=== PATIENT | female | born 1985 | race Caucasian/White ===

== ENCOUNTER 2017-02-08 16:26 | Emergency (ER) | payer SELFPAY ==
--- NOTE | 2017-02-08 19:01 | DIAGNOSTIC IMAGING REPORT ---
PROCEDURE: US COMPLETE PELVIC W/TRANSVAG INDICATION: PAIN TECHNIQUE: Transabdominal and endovaginal johnson scale and color Doppler sonographic images of the female pelvis were obtained. COMPARISON: None. FINDINGS: TRANSABDOMINAL SCANS: Anteverted uterus measures 7 x 6.3 x 3.8 cm. Normal kidneys. TRANSVAGINAL SCANS: Myometrium is unremarkable. IUD in satisfactory position with the tip in the fundal portion of the endometrium. Endometrium measures 4.5 mm. Left ovary measures 3.2 by 21 by 2.6 cm and right ovary 4.2 x 2.8 x 2.9 cm. There is a 2.5 cm simple right ovarian cyst. There is vascular flow to the ovaries. Trace free fluid in the cul-de-sac. No adnexal mass. IMPRESSION: 1. IUD in satisfactory position 2. 2.5 cm simple right ovarian cyst with trace free fluid in the pelvis.
--- NOTE | 2017-02-08 19:08 | ED NURSING NOTES ---
Clinical Report - Nurses [facility] [address] [place] [address] 02/08/2017 16:27 Patient: DANICA CALDWELL TRIAGE Triage time 17:Feb 08 2017. Acuity: LEVEL 3. Chief Complaint: ABDOMINAL PAIN. Alert. No acute distress. JASON COMA SCORE: [place] Coma Scale: 15- eyes open spontaneously (4); best verbal response- oriented x 4 (5); best motor response- obeys commands (6). --17:23 Clara Chin R.N. 17:16 02/08/17. BP: 111/66. HR: 77. RR: 16. O2 saturation: 100%. Temp: 97.9 F. Pain level now: 01/30. --17:23 Clara Chin R.N. Weight: 62.1 kg stated. Height/Length: 62 inches Per Patient. BMI: 25.1. --17:15 Clara Chin R.N. Medications None. --17:17 Clara Chin R.N. Allergies None. --17:17 Clara Chin R.N. History Arrived by private vehicle. Historian: patient. Accompanied by friend. Onset. (several months). She has had nausea and vomiting. ( fatigue, also complains of right and left side of body going numb at times.). 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 PAST MEDICAL HX: Immunizations: up-to-date. Last normal menstrual period- about 2 months ago. Uses an intrauterine device. Denies current . SOCIAL HX: Current every day heavy tobacco smoker (cigarette)- less than 1 pack per day. Occasional alcohol use. History of weekly drug use: marijuana. No recent travel. No infectious disease exposure. No known contact with a sick individual. SELF HARM ASSESSMENT: A self harm assessment was performed. The patient answered "no" to the question "Do you have thoughts of harming or killing yourself?" and "Have you recently had thoughts about harming or killing others?". FALL RISK ASSESSMENT: Fall risk assessment completed. No fall risk identified. NUTRITIONAL RISK ASSESSMENT: The nutritional risk assessment revealed no deficiencies. FUNCTIONAL ASSESSMENT: Functional assessment: no impairments noted. LEARNING NEEDS ASSESSMENT: The learning needs assessment revealed no barriers. ABUSE ASSESSMENT: Abuse assessment: The patient was asked "Do you feel safe in your home?". SKIN INTEGRITY ASSESSMENT: Skin integrity risk assessment completed. No skin integrity risk identified. --17:23 Clara Chin R.N. PROBLEMS: URI. Pelvic Pain. Diarrhea. Vaginitis. UTI - Urinary Tract Infection. Vaginal Discharge. . Asthma. Care. Immunizations. LNMP - Last Normal Menstrual Period. OB History. --17:18 Clara Chin R.N. ADDITIONAL SURGERIES: Appendectomy. . --17:18 Clara Chin R.N. Trigger thumb. --17:18 Clara Chin R.N. Interventions ID band on patient. To room. --17:23 Clara Chin R.N. PHYSICAL ASSESSMENT Ambulatory to room. GENERAL / NEURO / PSYCH: Alert. Oriented X 4. Appears in pain. RESPIRATORY: Respirations not labored. CVS: Capillary refill less than 2 seconds. GI / : Abdomen soft. Abdominal tenderness in the suprapubic area. Bowel sounds within normal limits. SKIN: Skin is warm and dry. --17:25 Clara Chin R.N. NURSING PROGRESS NOTES Patient gowned. Head of bed elevated. Patient identifiers checked. Call light placed in reach. Bed placed in lowest position. Brakes of bed on. --17:25 Clara Chin R.N. PELVIC EXAM: Pelvic exam performed by PA. Assisted by one nurse. Preparation: pelvic tray and culture medium; patient placed in lithotomy position. Procedure: speculum and bimanual exam. Specimens collected and sent to lab: GC, chlamydia and wet prep. No vaginal discharge noted. No vaginal bleeding noted. No rectal exam performed. Status post-procedure: she was stable and no complications were noted. Total time of assist / procedure: 15 minutes. --18:10 Ines Kemp R.N. 17:24 02/08/2017 Site #1 started via IV in the right antecubital space with an 20g angiocath; one attempt. Blood drawn: rainbow set. Labeled in the presence of the patient and sent to the lab. Saline lock flushed with 10 mL saline. --19:24 Clara Chin R.N. 19:02/08/2017 Macrobid PO Capsules 100 mg given. Allergies verified and confirmed 5 rights. --19: Clara Chin R.N. 19:02/08/2017 Toradol IVP 30 mg given over 2 minute(s) via site #1. Allergies verified and confirmed 5 rights. IV patency established. IV site checked: no pain, redness, or swelling. IV flushed thoroughly pre- and post-medication administration. IVP given by RN. --: Clara Chin R.N. DISPOSITION / DISCHARGE 19:32 02/08/2017 Site #1 removed upon discharge. Bandage applied. --:32 Clara Chin R.N. Departure time: :Feb 08 2017. Condition at departure: improved. No learning barriers present. Discharge instructions provided and reviewed with the patient. Reviewed medication(s) side effects, precautions, dosing and course information. Prescription(s) given to the patient. Reviewed referral to a customer program specialist for followup. Patient verbalized understanding. Written instructions provided in Icelandic. The patient was discharged home. She left the Emergency Department ambulatory and via private vehicle. Patient driving. --19:33 Clara Chin R.N. 19:32 02/08/17. BP: 118/73. HR: 74. RR: 16. O2 saturation: 98%. Pain level now: 12/30. --19:33 Clara Chin R.N. Locked/Released at 02/08/2017 19:48 by Clara Chin R.N.
--- NOTE | 2017-02-08 19:08 | ED ORDER SUMMARY ---
..... Patient: DANICA CALDWELL OrderSheet [facility] VisitID: [id number] [place] [address] 31y, F Registration Date/Time: 02/08/2017 ORDER SHEET Weight: 62.1 kg (stated) Allergies: None GENERAL ORDERS: US Pelvic Complete w Transvag Urgent (17:44 02/08/2017 EKoroleva P.A.-C) (Ack 18:12 LNations ER Tech1) (19:24 KKnebel R.N.) CBC w Diff Urgent (17:44 02/08/2017 EKoroleva P.A.-C) (17:54 KWilliams R.N.) CMP Urgent (17:44 02/08/2017 EKoroleva P.A.-C) (17:54 KWilliams R.N.) UA-Culture if indicated Urgent (17:44 02/08/2017 EKoroleva P.A.-C) (Ack 18:12 LNations ER Tech1) (19:24 KKnebel R.N.) Lipase Urgent (17:44 02/08/2017 EKoroleva P.A.-C) (17:54 KWilliams R.N.) Urine Urgent (17:44 02/08/2017 EKoroleva P.A.-C) (17:54 KWilliams R.N.) Pelvic Exam Setup (17:44 02/08/2017 EKoroleva P.A.-C) (18:07 KWilliams R.N.) Wet Prep (Cervix) (c) Urgent (18:19 02/08/2017 EKoroleva P.A.-C) (Ack 18:22 LNations ER Tech1) (19:24 KKnebel R.N.) GC/Chlamydia, Urine (Urine, Clean Catch) (c) Urgent (18:20 02/08/2017 EKoroleva P.A.-C) (Ack 18:22 LNations ER Tech1) (19:24 KKnebel R.N.) Vitals (18:59 02/08/2017 EKoroleva P.A.-C) (Ack 19:23 IJurca ER Tech1) (19:24 Malorie R.N.) MEDICATION ORDERS: Macrobid PO 100 mg (NOW) (18:38 02/08/2017 EKlincoln P.A.-C) (19:21 Malorie R.N.) IV FLUIDS: Toradol IV 30 mg (NOW) (18:38 02/08/2017 Nico P.A.-C) (19:24 Malorie R.N.) ORDER SHEET NOTES: [Electronically signed by Clara Chin R.N. (19:48 02/08/2017)] [Electronically signed by Phoebe Clark-Kayli (20:05 02/08/2017)] [Electronically locked/signed by Clara Chin R.N. (19:48 02/08/2017)]
--- NOTE | 2017-02-08 19:08 | ED ORDER SUMMARY ---
..... Patient: DANICA CALDWELL OrderSheet [facility] VisitID: [id number] [place] [address] 31y, F Registration Date/Time: 02/08/2017 ORDER SHEET Weight: 62.1 kg (stated) Allergies: None GENERAL ORDERS: US Pelvic Complete w Transvag Urgent (17:44 02/08/2017 EKoroleva P.A.-C) (Ack 18:12 LNations ER Tech1) (19:24 KKnebel R.N.) CBC w Diff Urgent (17:44 02/08/2017 EKoroleva P.A.-C) (17:54 KWilliams R.N.) CMP Urgent (17:44 02/08/2017 EKoroleva P.A.-C) (17:54 KWilliams R.N.) UA-Culture if indicated Urgent (17:44 02/08/2017 EKoroleva P.A.-C) (Ack 18:12 LNations ER Tech1) (19:24 KKnebel R.N.) Lipase Urgent (17:44 02/08/2017 EKoroleva P.A.-C) (17:54 KWilliams R.N.) Urine Urgent (17:44 02/08/2017 EKoroleva P.A.-C) (17:54 KWilliams R.N.) Pelvic Exam Setup (17:44 02/08/2017 EKoroleva P.A.-C) (18:07 KWilliams R.N.) Wet Prep (Cervix) (c) Urgent (18:19 02/08/2017 EKoroleva P.A.-C) (Ack 18:22 LNations ER Tech1) (19:24 KKnebel R.N.) GC/Chlamydia, Urine (Urine, Clean Catch) (c) Urgent (18:20 02/08/2017 EKoroleva P.A.-C) (Ack 18:22 LNations ER Tech1) (19:24 KKnebel R.N.) Vitals (18:59 02/08/2017 EKoroleva P.A.-C) (Ack 19:23 IJurca ER Tech1) (19:24 Malorie R.N.) MEDICATION ORDERS: Macrobid PO 100 mg (NOW) (18:38 02/08/2017 EKlincoln P.A.-C) (19:21 Malorie R.N.) IV FLUIDS: Toradol IV 30 mg (NOW) (18:38 02/08/2017 Nico P.A.-C) (19:24 Malorie R.N.) ORDER SHEET NOTES: [Electronically signed by Clara Chin R.N. (19:48 02/08/2017)] [Electronically signed by Phoebe Calrk-Kayli (20:05 02/08/2017)] [Electronically locked/signed by Clara Chin R.N. (19:48 02/08/2017)]
--- NOTE | 2017-02-08 19:08 | ED NURSING NOTES ---
Clinical Report - Nurses [facility] [address] [place] [address] 02/08/2017 16:27 Patient: DANICA CALDWELL TRIAGE Triage time 17:Feb 08 2017. Acuity: LEVEL 3. Chief Complaint: ABDOMINAL PAIN. Alert. No acute distress. JASON COMA SCORE: [place] Coma Scale: 15- eyes open spontaneously (4); best verbal response- oriented x 4 (5); best motor response- obeys commands (6). --17:23 Clara Chin R.N. 17:16 02/08/17. BP: 111/66. HR: 77. RR: 16. O2 saturation: 100%. Temp: 97.9 F. Pain level now: 01/30. --17:23 Clara Chin R.N. Weight: 62.1 kg stated. Height/Length: 62 inches Per Patient. BMI: 25.1. --17:15 Clara Chin R.N. Medications None. --17:17 Clara Chin R.N. Allergies None. --17:17 Clara Chin R.N. History Arrived by private vehicle. Historian: patient. Accompanied by friend. Onset. (several months). She has had nausea and vomiting. ( fatigue, also complains of right and left side of body going numb at times.). 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 PAST MEDICAL HX: Immunizations: up-to-date. Last normal menstrual period- about 2 months ago. Uses an intrauterine device. Denies current . SOCIAL HX: Current every day heavy tobacco smoker (cigarette)- less than 1 pack per day. Occasional alcohol use. History of weekly drug use: marijuana. No recent travel. No infectious disease exposure. No known contact with a sick individual. SELF HARM ASSESSMENT: A self harm assessment was performed. The patient answered "no" to the question "Do you have thoughts of harming or killing yourself?" and "Have you recently had thoughts about harming or killing others?". FALL RISK ASSESSMENT: Fall risk assessment completed. No fall risk identified. NUTRITIONAL RISK ASSESSMENT: The nutritional risk assessment revealed no deficiencies. FUNCTIONAL ASSESSMENT: Functional assessment: no impairments noted. LEARNING NEEDS ASSESSMENT: The learning needs assessment revealed no barriers. ABUSE ASSESSMENT: Abuse assessment: The patient was asked "Do you feel safe in your home?". SKIN INTEGRITY ASSESSMENT: Skin integrity risk assessment completed. No skin integrity risk identified. --17:23 Clara Chin R.N. PROBLEMS: URI. Pelvic Pain. Diarrhea. Vaginitis. UTI - Urinary Tract Infection. Vaginal Discharge. . Asthma. Care. Immunizations. LNMP - Last Normal Menstrual Period. OB History. --17:18 Clara Chin R.N. ADDITIONAL SURGERIES: Appendectomy. . --17:18 Clara Chin R.N. Trigger thumb. --17:18 Clara Chin R.N. Interventions ID band on patient. To room. --17:23 Clara Chin R.N. PHYSICAL ASSESSMENT Ambulatory to room. GENERAL / NEURO / PSYCH: Alert. Oriented X 4. Appears in pain. RESPIRATORY: Respirations not labored. CVS: Capillary refill less than 2 seconds. GI / : Abdomen soft. Abdominal tenderness in the suprapubic area. Bowel sounds within normal limits. SKIN: Skin is warm and dry. --17:25 Clara Chin R.N. NURSING PROGRESS NOTES Patient gowned. Head of bed elevated. Patient identifiers checked. Call light placed in reach. Bed placed in lowest position. Brakes of bed on. --17:25 Clara Chin R.N. PELVIC EXAM: Pelvic exam performed by PA. Assisted by one nurse. Preparation: pelvic tray and culture medium; patient placed in lithotomy position. Procedure: speculum and bimanual exam. Specimens collected and sent to lab: GC, chlamydia and wet prep. No vaginal discharge noted. No vaginal bleeding noted. No rectal exam performed. Status post-procedure: she was stable and no complications were noted. Total time of assist / procedure: 15 minutes. --18:10 Ines Kemp R.N. 17:24 02/08/2017 Site #1 started via IV in the right antecubital space with an 20g angiocath; one attempt. Blood drawn: rainbow set. Labeled in the presence of the patient and sent to the lab. Saline lock flushed with 10 mL saline. --19:24 Clara Chin R.N. 19:02/08/2017 Macrobid PO Capsules 100 mg given. Allergies verified and confirmed 5 rights. --19: Clara Chin R.N. 19:02/08/2017 Toradol IVP 30 mg given over 2 minute(s) via site #1. Allergies verified and confirmed 5 rights. IV patency established. IV site checked: no pain, redness, or swelling. IV flushed thoroughly pre- and post-medication administration. IVP given by RN. --: Clara Chin R.N. DISPOSITION / DISCHARGE 19:32 02/08/2017 Site #1 removed upon discharge. Bandage applied. --:32 Clara Chin R.N. Departure time: :Feb 08 2017. Condition at departure: improved. No learning barriers present. Discharge instructions provided and reviewed with the patient. Reviewed medication(s) side effects, precautions, dosing and course information. Prescription(s) given to the patient. Reviewed referral to a cotton bag sewer for followup. Patient verbalized understanding. Written instructions provided in Panamanian. The patient was discharged home. She left the Emergency Department ambulatory and via private vehicle. Patient driving. --19:33 Clara Chin R.N. 19:32 02/08/17. BP: 118/73. HR: 74. RR: 16. O2 saturation: 98%. Pain level now: 12/30. --19:33 Clara Chin R.N. Locked/Released at 02/08/2017 19:48 by Clara Chin R.N.
--- NOTE | 2017-02-08 19:08 | ED CLINICAL REPORT ---
Clinical Report - Physicians/Mid Levels [facility] [address] [place] [address] 02/08/2017 16:27 Patient: DANICA CALDWELL Time Seen: 17:52 Gregory 2016. Arrived- By private vehicle. Historian- patient. HISTORY OF PRESENT ILLNESS Chief Complaint: ABDOMINAL PAIN. It is described as "pain" and it is described as located in the pelvic area and in the left pelvis. This started few months. (patient reports left lower quadrant abdominal pain ongoing over the last few months, off and on, worse over the last 2 days, patient has had an IV in place in the last 2 years, has had spotting usually every month, however has not had any of the last 2 months. Patient has taken a few test at home which have been negative. Patient denies urgency or frequency or dysuria. patient reports paresthesias to the right upper and lower extremity over the last few months, lasting a few mins, they coincide usually with her migraines, which she reports having daily. At times appears seizures lasted a few minutes, up to 10 or 15.). REVIEW OF SYSTEMS No constipation, black stools, difficulty with urination, pain with urination or fever. No chest pain. All systems otherwise negative, except as recorded above. SOCIAL HISTORY Smoker- current status unknown. Alcohol use. History of drug use: marijuana. ADDITIONAL NOTES The nursing notes have been reviewed. PHYSICAL EXAM Vital Signs: 02/08/2017 17:16 BP: 111/66. HR: 77. RR: 16. O2 saturation: 100%. Temp: 97.9 F. Pain level now: 6/10. Appearance: No acute distress. Eyes: Eyes normal inspection. ENT: Ears normal. Nose normal. Neck: Normal inspection. Neck supple. CVS: Normal heart rate and rhythm. Heart sounds normal. Pulses normal. Respiratory: No respiratory distress. Breath sounds normal. Abdomen: Nontender. Back: Normal inspection. : Normal external exam. Speculum exam normal. A scant amount of white vaginal discharge present. No vaginal bleeding. Bimanual exam normal. Mild uterine tenderness; left adnexal tenderness. Not mild cervical motion tenderness. (janessa with Lokesh RN). Skin: Skin warm. Neuro: Oriented X 3. No motor deficit. LABS, X-RAYS, AND EKG Laboratory Tests: UA-Culture if indicated: (MIMI: 02/08/2017 17:30) ( [facility] 02/08/2017 18:06) Final results Test Result Flag Units (Reference) URINE COLOR YELLOW URINE APPEARANCE SL CLOUDY URINE GLUCOSE NEGATIVE (NEGATIVE) URINE BILIRUBIN NEGATIVE (NEGATIVE) URINE KETONE NEGATIVE (NEGATIVE) URINE SPECIFIC GRAVITY 1.020 (1.010-1.030) URINE PH 6.0 (5.0-8.0) URINE PROTEIN NEGATIVE (NEGATIVE) URINE UROBILINOGEN 0.2 EU/dL (0.2-1.0) URINE NITRITE NEGATIVE (NEGATIVE) URINE BLOOD NEGATIVE (NEGATIVE) URINE LEUK ESTERASE TRACE (NEGATIVE) URINE RBC 0-1 rbc/hpf (0-1) URINE WBC 1-3 wbc/hpf (0-1) URINE EPITHELIAL CELLS 5-10 EPI/hpf (0-5) URINE BACTERIA MODERATE (2+ TO 3+) (NONE SEEN) URINE COMMENT CULTURE INDICATED URINE CULTURES ARE SET-UP BASED ON THE FOLLOWING CRITERIA:POSITIVE NITRITEPOSITIVE LEUKOCYTE ESTERASEGREATER THAN 10 WHITE BLOOD CELLSMODERATE (2+) OR GREATER BACTERIA Urine: (MIMI: 02/08/2017 17:30) ( [facility] 02/08/2017 17:59) Final results Test Result Flag Units (Reference) URINE NEGATIVE CBC w Diff: (MIMI: 02/08/2017 17:30) ( [facility] 02/08/2017 17:52) Final results Test Result Flag Units (Reference) WHITE BLOOD COUNT 7.7 K/uL (4.5-11.5) RED BLOOD COUNT 4.08 M/uL (4.00-5.20) HEMOGLOBIN 13.2 gm/dL (12.0-16.0) HEMATOCRIT 39.3 % (36.0-46.0) MEAN CELL VOLUME 96 fL (80-100) MEAN CORPUSCULAR HGB 32 pg (26-34) MEAN CORPUSCULAR HGB CONC 34 g/dL (31-37) RED CELL DISTRIBUTION WIDTH 13.6 % (11.6-14.8) PLATELET COUNT 186 K/uL (150-400) LYMPH % 32.3 % (25-40) MONO % 5.9 % (3-14) GRANULOCYTE % 61.8 (53-90) CMP: (MIMI: 02/08/2017 17:30) ( [facility] 02/08/2017 18:06) Final results Test Result Flag Units (Reference) GLUCOSE 79 mg/dL (70-110) BUN 20 H mg/dL (7-18) CREATININE 0.7 mg/dL (0.6-1.3) Estimated GFR >60 mL/min Estimated GFR- >60 mL/min Note: Persistent reduction over 3 months in eGFR<60 mL/min/1.73 m2 defines CKD. Patients with eGFR values>=60 mL/min/1.73 m2 may also have CKD if evidence ofpersistent proteinuria. Additional information may be foundat www.kidney.org. SODIUM 142 mmol/L (136-145) POTASSIUM 4.3 mmol/L (3.5-5.1) CHLORIDE 106 mmol/L (98-107) CARBON DIOXIDE 28 mmol/L (21-32) CALCIUM 8.9 mg/dL (8.5-10.1) TOTAL PROTEIN 7.3 g/dL (6.4-8.2) ALBUMIN 3.8 g/dL (3.3-5.0) BILIRUBIN, TOTAL 0.2 mg/dL (0.0-1.0) ALKALINE PHOSPHATASE 83 U/L (46-116) AST (SGOT) 14 L U/L (15-37) ALT (SGPT) 28 U/L (12-78) LIPASE 349 U/L (73-393) Wet Prep: (MIMI: 02/08/2017 18:04) ( [facility] 02/08/2017 18:45) Final results SPECIMEN DESCRIPTION: C Test Result Flag Units (Reference) WET MOUNT CLUE CELLS:: FEW * EPITHELIAL CELLS: MODERATE -- SOURCE?: CERVIX WHITE BLOOD CELLS: FEW TRICHOMONAS:: NONE -- YEAST:: NONE . Note - Tests: (US PELVIS: IMPRESSION: 1. IUD in satisfactory position 2. 2.5 cm simple right ovarian cyst with trace free fluid in the pelvis. Electronically Final signed by:Jordan Robin MD 02/08/2017 7:00:42 PM). PROGRESS AND PROCEDURES Course of Care: patient in the emergency department with pelvic pain ongoing for a few months off and on, with an IUD that is present and largely good position. Patient with negative lab workup, signs of early cystitis, otherwise free fluid, which may represent recent ruptured cyst, as patient's pain worsened last night. Patient has no signs of acute surgical abdomen. 02/08/2017 19:32 BP: 118/73. HR: 74. RR: 16. O2 saturation: 98%. Pain level now: 5/10. Patient is stable. Physical exam findings are improved. Symptoms better. Patient/family counseled. Differential Diagnosis: I considered gastritis, gastroenteritis, acute appendicitis, diverticulitis, small bowel obstruction, biliary colic, hepatitis, splenic injury, intraabdominal abscess, urinary tract infection and ovarian cyst as a possible cause of abdominal pain in this patient. This is a partial list of diagnoses considered. Disposition: Discharged. Condition: good. CLINICAL IMPRESSION Pelvic pain. Paresthesia Acute cystitis. INSTRUCTIONS Drink plenty of fluids. (your IUD appears in good proper location). Warnings: Further evaluation is necessary. Prescription Medications: Macrobid 100 mg: Take 1 capsule orally every 12 hours for 7 days. No refills. Substitution is permissible. OTC Medications: Take acetaminophen (Tylenol, Datril, etc.) and ibuprofen (Advil, Nuprin, etc.) according to label instructions. Available over the counter. Follow-up with: Christos George MD, Obstetrics/Gynecology, , [facility], [address] [place] [address] Follow up. Call for the next available appointment. (Electronically signed by Phoebe Clark P.A.-C 02/08/2017 20:05)
--- NOTE | 2017-02-08 19:08 | ED CLINICAL REPORT ---
Clinical Report - Physicians/Mid Levels [facility] [address] [place] [address] 02/08/2017 16:27 Patient: DANICA CALDWELL Time Seen: 17:52 Gregory 2016. Arrived- By private vehicle. Historian- patient. HISTORY OF PRESENT ILLNESS Chief Complaint: ABDOMINAL PAIN. It is described as "pain" and it is described as located in the pelvic area and in the left pelvis. This started few months. (patient reports left lower quadrant abdominal pain ongoing over the last few months, off and on, worse over the last 2 days, patient has had an IV in place in the last 2 years, has had spotting usually every month, however has not had any of the last 2 months. Patient has taken a few test at home which have been negative. Patient denies urgency or frequency or dysuria. patient reports paresthesias to the right upper and lower extremity over the last few months, lasting a few mins, they coincide usually with her migraines, which she reports having daily. At times appears seizures lasted a few minutes, up to 10 or 15.). REVIEW OF SYSTEMS No constipation, black stools, difficulty with urination, pain with urination or fever. No chest pain. All systems otherwise negative, except as recorded above. SOCIAL HISTORY Smoker- current status unknown. Alcohol use. History of drug use: marijuana. ADDITIONAL NOTES The nursing notes have been reviewed. PHYSICAL EXAM Vital Signs: 02/08/2017 17:16 BP: 111/66. HR: 77. RR: 16. O2 saturation: 100%. Temp: 97.9 F. Pain level now: 6/10. Appearance: No acute distress. Eyes: Eyes normal inspection. ENT: Ears normal. Nose normal. Neck: Normal inspection. Neck supple. CVS: Normal heart rate and rhythm. Heart sounds normal. Pulses normal. Respiratory: No respiratory distress. Breath sounds normal. Abdomen: Nontender. Back: Normal inspection. : Normal external exam. Speculum exam normal. A scant amount of white vaginal discharge present. No vaginal bleeding. Bimanual exam normal. Mild uterine tenderness; left adnexal tenderness. Not mild cervical motion tenderness. (janessa with Lokesh RN). Skin: Skin warm. Neuro: Oriented X 3. No motor deficit. LABS, X-RAYS, AND EKG Laboratory Tests: UA-Culture if indicated: (MIMI: 02/08/2017 17:30) ( [facility] 02/08/2017 18:06) Final results Test Result Flag Units (Reference) URINE COLOR YELLOW URINE APPEARANCE SL CLOUDY URINE GLUCOSE NEGATIVE (NEGATIVE) URINE BILIRUBIN NEGATIVE (NEGATIVE) URINE KETONE NEGATIVE (NEGATIVE) URINE SPECIFIC GRAVITY 1.020 (1.010-1.030) URINE PH 6.0 (5.0-8.0) URINE PROTEIN NEGATIVE (NEGATIVE) URINE UROBILINOGEN 0.2 EU/dL (0.2-1.0) URINE NITRITE NEGATIVE (NEGATIVE) URINE BLOOD NEGATIVE (NEGATIVE) URINE LEUK ESTERASE TRACE (NEGATIVE) URINE RBC 0-1 rbc/hpf (0-1) URINE WBC 1-3 wbc/hpf (0-1) URINE EPITHELIAL CELLS 5-10 EPI/hpf (0-5) URINE BACTERIA MODERATE (2+ TO 3+) (NONE SEEN) URINE COMMENT CULTURE INDICATED URINE CULTURES ARE SET-UP BASED ON THE FOLLOWING CRITERIA:POSITIVE NITRITEPOSITIVE LEUKOCYTE ESTERASEGREATER THAN 10 WHITE BLOOD CELLSMODERATE (2+) OR GREATER BACTERIA Urine: (MIMI: 02/08/2017 17:30) ( [facility] 02/08/2017 17:59) Final results Test Result Flag Units (Reference) URINE NEGATIVE CBC w Diff: (MIMI: 02/08/2017 17:30) ( [facility] 02/08/2017 17:52) Final results Test Result Flag Units (Reference) WHITE BLOOD COUNT 7.7 K/uL (4.5-11.5) RED BLOOD COUNT 4.08 M/uL (4.00-5.20) HEMOGLOBIN 13.2 gm/dL (12.0-16.0) HEMATOCRIT 39.3 % (36.0-46.0) MEAN CELL VOLUME 96 fL (80-100) MEAN CORPUSCULAR HGB 32 pg (26-34) MEAN CORPUSCULAR HGB CONC 34 g/dL (31-37) RED CELL DISTRIBUTION WIDTH 13.6 % (11.6-14.8) PLATELET COUNT 186 K/uL (150-400) LYMPH % 32.3 % (25-40) MONO % 5.9 % (3-14) GRANULOCYTE % 61.8 (53-90) CMP: (MIMI: 02/08/2017 17:30) ( [facility] 02/08/2017 18:06) Final results Test Result Flag Units (Reference) GLUCOSE 79 mg/dL (70-110) BUN 20 H mg/dL (7-18) CREATININE 0.7 mg/dL (0.6-1.3) Estimated GFR >60 mL/min Estimated GFR- >60 mL/min Note: Persistent reduction over 3 months in eGFR<60 mL/min/1.73 m2 defines CKD. Patients with eGFR values>=60 mL/min/1.73 m2 may also have CKD if evidence ofpersistent proteinuria. Additional information may be foundat www.[email or web address].org. SODIUM 142 mmol/L (136-145) POTASSIUM 4.3 mmol/L (3.5-5.1) CHLORIDE 106 mmol/L (98-107) CARBON DIOXIDE 28 mmol/L (21-32) CALCIUM 8.9 mg/dL (8.5-10.1) TOTAL PROTEIN 7.3 g/dL (6.4-8.2) ALBUMIN 3.8 g/dL (3.3-5.0) BILIRUBIN, TOTAL 0.2 mg/dL (0.0-1.0) ALKALINE PHOSPHATASE 83 U/L (46-116) AST (SGOT) 14 L U/L (15-37) ALT (SGPT) 28 U/L (12-78) LIPASE 349 U/L (73-393) Wet Prep: (MIMI: 02/08/2017 18:04) ( [facility] 02/08/2017 18:45) Final results SPECIMEN DESCRIPTION: C Test Result Flag Units (Reference) WET MOUNT CLUE CELLS:: FEW * EPITHELIAL CELLS: MODERATE -- SOURCE?: CERVIX WHITE BLOOD CELLS: FEW TRICHOMONAS:: NONE -- YEAST:: NONE . Note - Tests: (US PELVIS: IMPRESSION: 1. IUD in satisfactory position 2. 2.5 cm simple right ovarian cyst with trace free fluid in the pelvis. Electronically Final signed by:Jordan Robin MD 02/08/2017 7:00:42 PM). PROGRESS AND PROCEDURES Course of Care: patient in the emergency department with pelvic pain ongoing for a few months off and on, with an IUD that is present and largely good position. Patient with negative lab workup, signs of early cystitis, otherwise free fluid, which may represent recent ruptured cyst, as patient's pain worsened last night. Patient has no signs of acute surgical abdomen. 02/08/2017 19:32 BP: 118/73. HR: 74. RR: 16. O2 saturation: 98%. Pain level now: 5/10. Patient is stable. Physical exam findings are improved. Symptoms better. Patient/family counseled. Differential Diagnosis: I considered gastritis, gastroenteritis, acute appendicitis, diverticulitis, small bowel obstruction, biliary colic, hepatitis, splenic injury, intraabdominal abscess, urinary tract infection and ovarian cyst as a possible cause of abdominal pain in this patient. This is a partial list of diagnoses considered. Disposition: Discharged. Condition: good. CLINICAL IMPRESSION Pelvic pain. Paresthesia Acute cystitis. INSTRUCTIONS Drink plenty of fluids. (your IUD appears in good proper location). Warnings: Further evaluation is necessary. Prescription Medications: Macrobid 100 mg: Take 1 capsule orally every 12 hours for 7 days. No refills. Substitution is permissible. OTC Medications: Take acetaminophen (Tylenol, Datril, etc.) and ibuprofen (Advil, Nuprin, etc.) according to label instructions. Available over the counter. Follow-up with: Christos George MD, Obstetrics/Gynecology, , [facility], [address] [place] [address] Follow up. Call for the next available appointment. (Electronically signed by Phoebe Clark P.A.-C 02/08/2017 20:05)
--- NOTE | 2017-02-08 20:05 | ED DISCHARGE INSTRUCTIONS ---
Patient: DANICA CALDWELL General Instructions [facility] VisitID: [id number] [place] [address] 31y, F Registration Date/Time: 02/08/2017 Pelvic pain. Paresthesia Acute cystitis. INSTRUCTIONS Drink plenty of fluids. (your IUD appears in good proper location). Warnings: Further evaluation is necessary. Prescription Medications: Macrobid 100 mg: Take 1 capsule orally every 12 hours for 7 days. No refills. Substitution is permissible. OTC Medications: Take acetaminophen (Tylenol, Datril, etc.) and ibuprofen (Advil, Nuprin, etc.) according to label instructions. Available over the counter. Follow-up with: Christos George MD, Obstetrics/Gynecology, , [facility], [address] [place] [address] Follow up. Call for the next available appointment. ADDITIONAL INFORMATION Paraesthesias Paraesthesia refers to a burning or prickling sensation that is sometimes felt in the hands, arms, legs or feet. It can also occur in other parts of the body. It can also feel like tingling or numbness, skin crawling or itching.The sensation is usually painless. Most people have experienced pins and needles. This feeling happens when legs have been crossed for too long and pressure is placed on a nerve. This is a temporary paraesthesia. It quickly goes away once the pressure is relieved. There are many possible causes for chronic paraesthesias. These include such disorders as stroke, herniated disk (pressing on a nerve), trapped nerve in the shoulder, elbow or wrist (such as carpal tunnel syndrome), vitamin deficiencies or even certain medicines. Laboratory tests are needed to make an accurate diagnosis. These tests may include blood tests, X-ray, CT (computerized tomography) scan or a muscle test (electromyography).Depending on the cause, treatment may include physical therapy. Home Care: Do not make any changes to your medicines without advice from your doctor. If vitamins have been prescribed, remember to take them daily at the recommended dose. Because of a decrease in feeling, a numb hand or foot may be more prone to injury. Take care to protect these areas from cuts, bumps, bruises, peralta or other injury. Keep your nails trimmed and wash your hands and feet often. Wear shoes that fit well to avoid pressure points, blisters and ulcers. Look at your hands and feet carefully (including the soles of your feet and between your toes) at least once a week and notify your doctor of any open wounds or signs of infection. Follow Up with your doctor or as advised by our staff. You may need further testing to determine the exact cause of your paraesthesia. [NOTE: If blood tests, X-ray, CT scan or electromyography were done, specialists will review them. You will be notified of any new findings that may affect your care.] Get Prompt Medical Attention if any of the following occur: Numbness or weakness of the face, one arm or one leg Slurred speech, confusion, trouble speaking, walking or seeing Severe headache, fainting spell, dizziness or seizure Chest, arm, neck or upper back pain Loss of bladder or bowel control Open wound with redness, swelling or pus Pelvic Pain, Uncertain Cause Based on your visit today, the exact cause of your pelvic pain is not certain. But your condition does not appear to be serious at this time. However, the signs of a serious problem may take more time to appear. Therefore, it is important for you to watch for any new symptoms or worsening of your condition. Home Care: Rest until you are feeling better. Avoid sexual intercourse until your pain goes away. You may use acetaminophen (Tylenol) or ibuprofen (Motrin, Advil) to control pain, unless another medicine was prescribed. [NOTE: If you have chronic liver or kidney disease or ever had a stomach ulcer or GI bleeding, talk with your doctor before using these medicines.] Follow Up with your doctor as advised. If a culture test was taken, call in two days for the results. If the culture is positive, you will be given more advice at that time. Otherwise, follow-up with your doctor or this facility as instructed. Get Prompt Medical Attention if any of the following occur: Fever of 100.4F (38C) or higher, or as directed by your healthcare provider Vaginal discharge Worsening pain Weakness, dizziness or fainting Unexpected vaginal bleeding or passage of johnson or white tissue from the vagina Pain that moves to the right lower abdomen Bladder Infection,Female (Adult) A bladder infection ("cystitis" or "UTI") usually causes a constant urge to urinate and a burning when passing urine. Urine may be cloudy, smelly or dark. There may be pain in the lower abdomen. A bladder infection occurs when bacteria from the vaginal area enter the bladder opening (urethra). This can occur from sexual intercourse, wearing tight clothing, dehydration and other factors. Home Care: Drink lots of fluids (at least 6-8 glasses a day, unless you must restrict fluids for other medical reasons). This will force the medicine into your urinary system and flush the bacteria out of your body. Avoid sexual intercourse until your symptoms are gone. Avoid caffeine, alcohol and spicy foods. These can irritate the bladder. A bladder infection is treated with antibiotics. You may also be given Pyridium (generic = phenazopyridine) to reduce the burning sensation. This medicine will cause your urine to become a bright orange color. The orange urine may stain clothing. You may wear a pad or panty-liner to protect clothing. Preventing Future Infections: Always wipe from front to back after a bowel movement. Keep the genital area clean and dry. Drink plenty of fluids each day to avoid dehydration. Both sexual partners should wash before intercourse. Urinate right after intercourse to flush out the bladder. Wear cotton underwear and cotton-lined panty hose; avoid tight-fitting pants. If you are on control pills and are having frequent bladder infections, discuss with your doctor. Follow Up: Return to this facility or see your doctor if ALL symptoms are not gone after three days of treatment. Get Prompt Medical Attention if any of the following occur: Fever of 100.4F (38C) or higher, or as directed by your healthcare provider No improvement by the third day of treatment Increasing back or abdominal pain Repeated vomiting; unable to keep medicine down Weakness, dizziness or fainting Vaginal discharge Pain, redness or swelling in the labia (outer vaginal area) You have been given the following additional information: Paraesthesias Pelvic Pain, Unknown Cause Bladder Infection, Female (Adult) (Electronically signed by Phoebe Clark P.A.-C 02/08/2017 20:05)
--- NOTE | 2017-02-08 20:05 | ED MED RECONCILIATION SUMMARY ---
Patient: DANICA CALDWELL Medication Reconciliation Report Merged With [facility] VisitID: [id number] [place] [address] 31y, F Registration Date/Time: 02/08/2017 Weight: 62.1 kg Height/Length: 62 in. BMI: 25.1 ALLERGIES: None The patient's Home Medications are listed below: NONE. The source(s) of the original Home Medication information: Not obtained. The following Medications were given to the patient in the Emergency Department: Macrobid [PO] PO 100 mg, administered: 02/08/2017 7:21:00 PM Toradol [IVP] IVP 30 mg, administered: 02/08/2017 7:24:00 PM The following Medications were prescribed to the patient: Take acetaminophen (Tylenol, Datril, etc.) and ibuprofen (Advil, Nuprin, etc.) according to label instructions. Available over the counter. -- Phoebe Clark P.ALisa Macrobid 100 mg: Take 1 capsule orally every 12 hours for 7 days. No refills. Substitution is permissible. -- Phoebe Clark P.A.-C
--- NOTE | 2017-02-08 20:05 | ED MAR SUMMARY ---
..... Medication Administration Record [facility] [address] [place] [address] Patient: DANICA CALDWELL Visit ID: [id number] 31y, F Weight: 62.1 kg Height/Length: 62 in BMI: 25.1 ALLERGIES: None Given 19:02/08/2017 Clara Chin, RAntonN. Medication Administered: MACROBID [PO], Dose: 100 mg Capsules PO. Medication Ordered: Macrobid PO 100 mg (NOW). Given 19:02/08/2017 Clara Chin, R.N. Medication Administered: TORADOL [IVP], Dose: 30 mg IVP over 2 minute(s), Site: #1 right AC. Medication Ordered: Toradol IV 30 mg (NOW).
--- NOTE | 2017-02-08 20:05 | ED MAR SUMMARY ---
..... Medication Administration Record [facility] [address] [place] [address] Patient: DANICA CALDWELL Visit ID: [id number] 31y, F Weight: 62.1 kg Height/Length: 62 in BMI: 25.1 ALLERGIES: None Given 19:02/08/2017 Clara Chin, RAntonN. Medication Administered: MACROBID [PO], Dose: 100 mg Capsules PO. Medication Ordered: Macrobid PO 100 mg (NOW). Given 19:02/08/2017 Clara Chin, R.N. Medication Administered: TORADOL [IVP], Dose: 30 mg IVP over 2 minute(s), Site: #1 right AC. Medication Ordered: Toradol IV 30 mg (NOW).
--- NOTE | 2017-02-08 20:05 | ED MED RECONCILIATION SUMMARY ---
Patient: DANICA CALDWELL Medication Reconciliation Report [facility] VisitID: [id number] [place] [address] 31y, F Registration Date/Time: 02/08/2017 Weight: 62.1 kg Height/Length: 62 in. BMI: 25.1 ALLERGIES: None The patient's Home Medications are listed below: NONE. The source(s) of the original Home Medication information: Not obtained. The following Medications were given to the patient in the Emergency Department: Macrobid [PO] PO 100 mg, administered: 02/08/2017 7:21:00 PM Toradol [IVP] IVP 30 mg, administered: 02/08/2017 7:24:00 PM The following Medications were prescribed to the patient: Take acetaminophen (Tylenol, Datril, etc.) and ibuprofen (Advil, Nuprin, etc.) according to label instructions. Available over the counter. -- Phoebe Clark P.ALisa Macrobid 100 mg: Take 1 capsule orally every 12 hours for 7 days. No refills. Substitution is permissible. -- Phoebe Clark P.A.-C
== END 2017-02-08 19:27 | disposition home or self-care (01) ==
LOC: ED SRH 16:26
DX: N30.00 Acute cystitis without hematuria (principal); R10.2 Pelvic and perineal pain; R20.2 Paresthesia of skin
CPT/HCPCS: 90004; 90100; 90195; 90469; 91227; 91228; 92235; 93070; 95059